=== PATIENT | female | born 1990 ===

== ENCOUNTER 2016-08-19 16:24 | Outpatient (CLI) | payer OTHER | END 2016-08-19 16:25 | disposition home or self-care (01) | LOC: MADLABBHPM 16:24 | PROVIDERS: ATTEND Family Medicine | DX: Z34.83 Encounter for supervision of other normal pregnancy, third trimester (principal) | CPT/HCPCS: 87086 ==

== ENCOUNTER 2016-09-02 14:14 | Outpatient (CLI) | payer OTHER | END 2016-09-02 14:15 | LOC: MADLABBHPM 14:14 | PROVIDERS: ATTEND Family Medicine | DX: Z34.83 Encounter for supervision of other normal pregnancy, third trimester (principal) | CPT/HCPCS: 36415; 87081; 87086 ==

== ENCOUNTER 2016-09-16 15:13 | Outpatient (CLI) | payer OTHER | END 2016-09-16 15:14 | disposition home or self-care (01) | LOC: MADLABBHPM 15:13 | PROVIDERS: ATTEND Family Medicine | DX: Z34.83 Encounter for supervision of other normal pregnancy, third trimester (principal) | CPT/HCPCS: 87086 ==